=== PATIENT | female | born 2000 | race Caucasian/White ===

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

== ENCOUNTER 2020-06-07 09:03 | Emergency (ER) | payer BC, OTHER ==
[2020-06-07 09:11] VITALS: BP 129/79; PULSE 103; RESP 16; TEMP 98.1
[2020-06-07] MEDS ORDERED: KETOROLAC 15 MG/ML 1 ML VIAL IM STA (10:01)
--- NOTE | 2020-06-07 10:06 | ED ---
General Adult HPI - General Chief complaint: Back Pain/Injury Stated complaint: [facility] - Back Injury Time Seen by Provider: 06/07/20 09:30 Source: patient, RN notes reviewed Mode of arrival: ambulatory Limitations: no limitations - History of Present Illness Initial comments: Patient is a pleasant 20-year-old female presenting to the emergency Department with complaints of low back pain. Onset of symptoms was yesterday after lifting a large dog. Patient did have some assistance with another person however the dog was 150 pounds. Patient states following this she did have some lower back discomfort that progressively worsened. No loss of control of bowel or bladder. No weakness. No radiation. No history of chronic back problems previously. P atient denies any chance of possible . No abdominal pain. - Related Data Previous Rx's Medication Instructions Recorded Cyclobenzaprine [Flexeril] 10 mg PO TID PRN #12 tablet 06/07/20 Ibuprofen [Motrin] 600 mg PO Q6HR PRN #20 tab 06/07/20 Allergies Allergy/AdvReac Type Severity Reaction Status Date / Time No Known Allergies Allergy Verified 06/07/20 09:11 Review of Systems ROS Statement: Those systems with pertinent positive or pertinent negative responses have been documented in the HPI. ROS Other: All systems not noted in ROS Statement are negative. Constitutional: Denies: fever Eyes: Denies: eye pain ENT: Denies: ear pain Respiratory: Denies: cough Cardiovascular: Denies: chest pain Endocrine: Denies: fatigue Gastrointestinal: Denies: abdominal pain Genitourinary: Denies: dysuria Musculoskeletal: Reports: as per HPI, back pain Neurological: Denies: headache, weakness, numbness, paresthesias Past Medical History Past Medical History: No Reported History History of Any Multi-Drug Resistant Organisms: None Reported Past Surgical History: No Surgical Hx Reported Past Psychological History: No Psychological Hx Reported Smoking Status: Never smoker Past Alcohol Use History: Occasional Past Drug Use History: None Reported General Exam Limitations: no limitations General appearance: alert, in no apparent distress Head exam: Present: normocephalic Eye exam: Present: normal appearance Neck exam: Present: normal inspection Respiratory exam: Present: normal lung sounds bilaterally Cardiovascular Exam: Present: regular rate, normal rhythm Expanded Peripheral pulses: 2+: Dorsalis Pedis (R), Dorsalis Pedis (L) GI/Abdominal exam: Present: soft. Absent: distended, tenderness, pulsatile mass Extremities exam: Present: normal inspection Back exam: Present: tenderness (Minimal tenderness lower lumbar region) Neurological exam: Present: alert. Absent: motor sensory deficit Expanded Sensory exam: Lower Extremity Light Touch: Normal Motor strength exam: RLE: 5, LLE: 5 Psychiatric exam: Present: normal affect, normal mood Skin exam: Present: normal color Course Vital Signs 06/07/20 09:08 Temperature 98.1 F Pulse Rate 103 H Respiratory 16 Rate Blood Pressure 129/79 O2 Sat by Pulse 98 Oximetry Medical Decision Making - Medical Decision Making Discussion with patient regarding x-rays and patient would like to defer at this time. Disposition Clinical Impression: Low back pain Disposition: HOME SELF-CARE Condition: Stable Instructions (If sedation given, give patient instructions): Acute Low Back Pain (ED) Additional Instructions: Follow-up with [facility] services in the next day or 2 for recheck. No lifting more than 5 pounds until released by Dr. Pisano for weakness, fever, loss of control of bowel or bladder, worsening symptoms or other concerns. Prescriptions have been sent to [facility] Prescriptions: Cyclobenzaprine [Flexeril] 10 mg PO TID PRN #12 tablet PRN Reason: Pain Ibuprofen [Motrin] 600 mg PO Q6HR PRN #20 tab PRN Reason: Pain Is patient prescribed a controlled substance at d/c from ED?: No Referrals: Timothy Singh DO [Primary Care Provider] - 1-2 days Time of Disposition: 10:05
== END 2020-06-07 10:36 | disposition home or self-care (01) ==
LOC: EC 09:03
DX: M54.5 Low back pain (principal)
CPT/HCPCS: 99283; 96372; J1885

== ENCOUNTER → 2021-09-26 | Outpatient (CLI) | payer BC ==
--- NOTE | 2021-09-26 11:29 | XR ---
EXAMINATION TYPE: XR hand complete LT DATE OF EXAM: 09/26/2021 CLINICAL HISTORY: Pain. Styloid tenosynovitis. TECHNIQUE: Frontal, lateral and oblique images of the left hand are obtained. COMPARISON: None. FINDINGS: Slightly suboptimal as frontal projection is slightly oblique in technique. There is no acu te fracture/dislocation evident in the left hand. The joint spaces in the left hand appear within nor mal limits. Overlying soft tissue is unremarkable. IMPRESSION: Unremarkable study.
== END | disposition home or self-care (01) ==
LOC: RADXRYALE 10:53
PROVIDERS: ATTEND Physician Assistant Medical
DX: M65.4 Radial styloid tenosynovitis [de Quervain] (principal)